=== PATIENT | male | born 1975 | race Hispanic/Latino ===

== ENCOUNTER 2017-10-07 09:23 | Observation (INO) | payer MEDICAID ==
[~2017-10-07 09:23] MED LIST: ASCO500T8 PO; BACL10TA PO; CETI10TA86 PO; CICL6.6S TP; CLOB15CR5 TP; CYAN10009 PO; FERR324T PO; FLUT15.88 NS; FURO40TA5 PO; INSU3INS3 SQ; LACT10SO9 PO; MUPI22O TP; PANT40TA25 PO; PREG50 PO; PROP20SO PO; SPIR50TA3 PO; TRAM50TA4 PO; VENL75TA63 PO
[2017-10-07] MEDS ORDERED: ONDANSETRON ODT 4 MG TAB ONE (09:52)
[2017-10-07] MEDS ORDERED: MORPHINE SULFATE 8 MG/ML VIAL ONE (09:53)
[2017-10-07 10:05] LABS: BASOPHILS % (AUTO) 0.5 % (0.0-5.0); EOSINOPHILS % (AUTO) 0.6 % (0.0-8.0); HEMATOCRIT 37.8 % (42-54); MEAN CORPUSCULAR HEMOGLOBIN 25.2 pg (27.0-33.0); MEAN CORPUSCULAR HGB CONC 33.2 g/dL (32.0-36.0); MONOCYTES % (AUTO) 9.4 % (3.0-13.0); NEUTROPHILS % (AUTO) 80.5 % (40.0-77.0); PLATELET COUNT (AUTO) 167 K/uL (130-400); RED BLOOD CELL COUNT(AUTO) 4.97 MIL/uL (4.50-6.20); RED CELL DISTRIBUTION WIDTH 22.1 % (11.0-15.5); WHITE BLOOD COUNT (AUTO) 8.1 K/uL (4.8-10.8)
[2017-10-07 10:14] LABS: CREATININE 0.7 mg/dL (0.5-1.5); POTASSIUM 4.6 mmol/L (3.5-5.1)
[2017-10-07 10:19] LABS: ALBUMIN 2.9 g/dL (3.5-5.0); BILIRUBIN,TOTAL 1.5 mg/dL (0.2-1.0); TOTAL PROTEIN, SERUM 7.4 g/dL (6.0-8.3)
[2017-10-07] MEDS ORDERED: SODIUM CHLORIDE 0.9% 1000ML 1,000 ML IV ONE (10:38)
[2017-10-07 13:35] LABS: APPEARANCE,URINE Clear (CLEAR); BILIRUBIN,URINE Small (NEGATIVE); COLOR,URINE Dark Yellow (YELLOW); GLUCOSE, URINE (UA) TRACE mg/dL (NEGATIVE); KETONES,URINE Trace mg/dL (NEGATIVE); LEUKOCYTE ESTERASE ,URINE Large (NEGATIVE); NITRATE,URINE Negative (NEGATIVE); OCCULT BLOOD,URINE Small (NEGATIVE); PROTEIN,URINE Negative (NEGATIVE)
[2017-10-07 13:54] LABS: BACTERIA,URINE Few /HPF (None Seen); RBC,URINE 0-1 /HPF (0-1); SQUAMOUS EPITHELIAL CELL,UR Rare /LPF (0-2)
[2017-10-07] MEDS ORDERED: ACETAMINOPHEN 325 MG TAB ONE (15:07)
== END 2017-10-07 21:00 | disposition left against medical advice (07) ==
LOC: EDH 09:23 → EDHIP 12:19 → 3AH 21:00
PROVIDERS: ADMIT Family Medicine; ATTEND Family Medicine
DX: K92.2 Gastrointestinal hemorrhage, unspecified (principal); J96.90 Respiratory failure, unspecified, unspecified whether with hypoxia or hypercapnia; K74.60 Unspecified cirrhosis of liver; I10 Essential (primary) hypertension; E11.9 Type 2 diabetes mellitus without complications; E78.5 Hyperlipidemia, unspecified; F10.10 Alcohol abuse, uncomplicated
CPT/HCPCS: 36415; 80053; 81001; 85025; 99285; G0378 ×9; G0480; J2270; J7030

== ENCOUNTER 2017-10-08 08:44 | Inpatient (IN) | payer MEDICAID ==
[~2017-10-08] VITALS: Ht 162.6 cm; Wt 79.8 kg
[2017-10-08] MEDS ORDERED: CEFTRIAXONE SODIUM 2 GM VIAL ONE (09:02)
[2017-10-08] MEDS ORDERED: SODIUM CHLORIDE 0.9% 500ML 500 ML IV ONE (09:03)
[2017-10-08] MEDS ORDERED: ACETAMINOPHEN 325 MG TAB ONE (09:03)
[2017-10-08 09:32] LABS: BASOPHILS % (AUTO) 0.7 % (0.0-5.0); EOSINOPHILS % (AUTO) 0.5 % (0.0-8.0); HEMATOCRIT 37.9 % (42-54); LYMPHOCYTES % (AUTO) 10.6 % (21.0-51.0); MEAN CORPUSCULAR HEMOGLOBIN 24.9 pg (27.0-33.0); MEAN CORPUSCULAR HGB CONC 32.9 g/dL (32.0-36.0); MEAN CORPUSCULAR VOLUME 75.8 fL (79-99); MONOCYTES % (AUTO) 8.3 % (3.0-13.0); NEUTROPHILS % (AUTO) 79.9 % (40.0-77.0); NUCLEATED RED BLOOD CELLS 0.1 % (0.0-0.19); PLATELET COUNT (AUTO) 150 K/uL (130-400); RED BLOOD CELL COUNT(AUTO) 4.99 MIL/uL (4.50-6.20); RED CELL DISTRIBUTION WIDTH 22.3 % (11.0-15.5); WHITE BLOOD COUNT (AUTO) 6.4 K/uL (4.8-10.8)
[2017-10-08 09:47] LABS: INR 1.14 (0.85-1.15); PARTIAL THROMBOPLASTIN TIME 31.4 SEC (26.3-35.5); PROTHROMBIN TIME 11.9 SEC (9.6-11.6)
[2017-10-08 09:50] LABS: ALBUMIN 2.7 g/dL (3.5-5.0); BILIRUBIN,DIRECT 0.4 mg/dL (0.0-0.3); BILIRUBIN,TOTAL 1.6 mg/dL (0.2-1.0); CREATININE 0.6 mg/dL (0.5-1.5); POTASSIUM 5.3 mmol/L (3.5-5.1); TOTAL PROTEIN, SERUM 7.3 g/dL (6.0-8.3)
[2017-10-08] MEDS ORDERED: SODIUM CHLORIDE 0.9% 1000ML 1,000 ML IV ONE (10:29)
[2017-10-08 10:58] LABS: APPEARANCE,URINE Clear (CLEAR); BILIRUBIN,URINE Negative (NEGATIVE); COLOR,URINE Yellow (YELLOW); GLUCOSE, URINE (UA) >=1000 mg/dL (NEGATIVE); KETONES,URINE 15 mg/dL (NEGATIVE); LEUKOCYTE ESTERASE ,URINE Trace (NEGATIVE); NITRATE,URINE Negative (NEGATIVE); OCCULT BLOOD,URINE Small (NEGATIVE); PROTEIN,URINE Negative (NEGATIVE)
[2017-10-08 11:05] LABS: AMPHET/METH SCREEN,URINE NEGATIVE (NEGATIVE); BARBITURATE SCREEN, URINE NEGATIVE (NEGATIVE); BENZODIAZEPINES SCREEN,URINE POSITIVE (NEGATIVE); CANNABINOID SCREEN,URINE NEGATIVE (NEGATIVE); COCAINE SCREEN,URINE NEGATIVE (NEGATIVE); OPIATE SCREEN,URINE NEGATIVE (NEGATIVE); PHENCYCLIDINE SCREEN,URINE NEGATIVE (NEGATIVE)
[2017-10-08 11:28] LABS: BACTERIA,URINE Rare /HPF (None Seen); SQUAMOUS EPITHELIAL CELL,UR Rare /LPF (0-2); WBC,URINE 0-1 /HPF (0-1)
[2017-10-08] MEDS ORDERED: GUAIFENESIN-DM 200/20 MG 10 ML PO PRN (14:00)
[2017-10-08] MEDS ORDERED: LACTULOSE 20 GM/30 ML UDCUP PO PRN (14:00)
[2017-10-08] MEDS ORDERED: ONDANSETRON HCL 4 MG/2 ML VIAL IV PRN (14:00)
[2017-10-08] MEDS ORDERED: ACETAMINOPHEN-CODEINE 300/30MG TAB ONE (14:19)
[2017-10-08 15:12] VITALS: BP 140/88
[2017-10-08] MEDS: SODIUM CHLORIDE 0.9% 1000ML 1,000 ML IV SCH (15:58)
[2017-10-08 16:20] VITALS: BP 143/86
[2017-10-08] MEDS: ACETAMINOPHEN-CODEINE 300/30MG TAB PO PRN (16:59)
[2017-10-08] MEDS ORDERED: FLU VACC QS2017-18 36MOS UP/PF 60 MCG/0.5 ML ML IM ONE (18:00)
[2017-10-08 19:06] VITALS: BP 137/86
[2017-10-08] MEDS: FAMOTIDINE 20MG TAB 20 MG TAB PO SCH (21:12)
[2017-10-08 23:13] VITALS: BP 146/94
[2017-10-09] MEDS: ACETAMINOPHEN-CODEINE 300/30MG TAB PO PRN ×4 (00:08→18:33)
[2017-10-09 03:20] VITALS: BP 144/85
[2017-10-09] MEDS: SODIUM CHLORIDE 0.9% 1000ML 1,000 ML IV SCH ×2 (04:03→10:16)
[2017-10-09 08:00] VITALS: BP 150/92
[2017-10-09] MEDS: LACTULOSE 20 GM/30 ML UDCUP PO SCH ×3 (09:00→21:09)
[2017-10-09] MEDS: FUROSEMIDE 20 MG TABLET PO SCH (10:15)
[2017-10-09] MEDS: FAMOTIDINE 20MG TAB 20 MG TAB PO SCH ×2 (10:15→21:09)
[2017-10-09] MEDS: SPIRONOLACTONE 25 MG TAB PO SCH (10:15)
[2017-10-09 11:00] VITALS: BP 155/91
[2017-10-09] MEDS ORDERED: CEFTRIAXONE 1GM/D5W 50ML 50 ML IV SCH (14:45)
[2017-10-09 16:00] VITALS: BP 135/84
[2017-10-09] MEDS: INSULIN LISPRO 100 UNIT/ML 3ML SQ SCH (16:30)
[2017-10-09] MEDS: WATER FOR INJECTION,STERILE 20 ML VIAL IJ SCH (17:00)
[2017-10-09] MEDS: CEFTRIAXONE SODIUM 1 GM IVP SCH (17:12)
[2017-10-09 20:00] VITALS: BP 140/99
[2017-10-09] MEDS: CHLORDIAZEPOXIDE HCL 25 MG CAP PO PRN (21:09)
[2017-10-10] VITALS: BP 134/98
[2017-10-10] MEDS: ACETAMINOPHEN-CODEINE 300/30MG TAB PO PRN ×3 (00:23→23:21)
[2017-10-10 03:44] LABS: HEMATOCRIT 32.8 % (42-54); MEAN CORPUSCULAR HEMOGLOBIN 25.1 pg (27.0-33.0); MEAN CORPUSCULAR HGB CONC 33.3 g/dL (32.0-36.0); MEAN CORPUSCULAR VOLUME 75.5 fL (79-99); NUCLEATED RED BLOOD CELLS 0.2 % (0.0-0.19); PLATELET COUNT (AUTO) 139 K/uL (130-400); RED BLOOD CELL COUNT(AUTO) 4.34 MIL/uL (4.50-6.20); RED CELL DISTRIBUTION WIDTH 22.1 % (11.0-15.5); WHITE BLOOD COUNT (AUTO) 3.9 K/uL (4.8-10.8)
[2017-10-10 04:00] VITALS: BP 140/94
[2017-10-10 04:02] LABS: ALBUMIN 2.3 g/dL (3.5-5.0); CREATININE 0.6 mg/dL (0.5-1.5); POTASSIUM 3.8 mmol/L (3.5-5.1); TOTAL PROTEIN, SERUM 6.4 g/dL (6.0-8.3)
[2017-10-10] MEDS: SODIUM CHLORIDE 0.9% 1000ML 1,000 ML IV SCH ×3 (05:53→17:33)
[2017-10-10] MEDS: INSULIN LISPRO 100 UNIT/ML 3ML SQ SCH (06:22)
[2017-10-10 08:00] VITALS: BP 129/77
[2017-10-10] MEDS: FUROSEMIDE 20 MG TABLET PO SCH (09:00)
[2017-10-10] MEDS: LACTULOSE 20 GM/30 ML UDCUP PO SCH ×2 (09:00→21:31)
[2017-10-10] MEDS: FAMOTIDINE 20MG TAB 20 MG TAB PO SCH ×2 (09:00→21:31)
[2017-10-10] MEDS: SPIRONOLACTONE 25 MG TAB PO SCH (09:00)
[2017-10-10 11:55] VITALS: BP 136/90
[2017-10-10 16:00] VITALS: BP 132/79
[2017-10-10] MEDS: WATER FOR INJECTION,STERILE 20 ML VIAL IJ SCH (17:22)
[2017-10-10] MEDS: CEFTRIAXONE SODIUM 1 GM IVP SCH (17:22)
[2017-10-10 20:00] VITALS: BP 142/88
[2017-10-10] MEDS: CHLORDIAZEPOXIDE HCL 25 MG CAP PO PRN (21:31)
[2017-10-11] VITALS: BP 150/84
[2017-10-11] MEDS: SODIUM CHLORIDE 0.9% 1000ML 1,000 ML IV SCH (03:49)
[2017-10-11 04:00] VITALS: BP 154/88
[2017-10-11] MEDS: CHLORDIAZEPOXIDE HCL 25 MG CAP PO PRN (04:48)
[2017-10-11] MEDS: ACETAMINOPHEN-CODEINE 300/30MG TAB PO PRN (04:48)
[2017-10-11 05:46] LABS: HEMATOCRIT 33.7 % (42-54); MEAN CORPUSCULAR HEMOGLOBIN 25.2 pg (27.0-33.0); MEAN CORPUSCULAR HGB CONC 32.7 g/dL (32.0-36.0); NUCLEATED RED BLOOD CELLS 0.1 % (0.0-0.19); PLATELET COUNT (AUTO) 141 K/uL (130-400); RED BLOOD CELL COUNT(AUTO) 4.38 MIL/uL (4.50-6.20); RED CELL DISTRIBUTION WIDTH 21.7 % (11.0-15.5); WHITE BLOOD COUNT (AUTO) 3.3 K/uL (4.8-10.8)
[2017-10-11 05:59] LABS: CREATININE 0.6 mg/dL (0.5-1.5); POTASSIUM 3.6 mmol/L (3.5-5.1)
[2017-10-11 08:00] VITALS: BP 128/85
[2017-10-11] MEDS: FAMOTIDINE 20MG TAB 20 MG TAB PO SCH (08:52)
[2017-10-11] MEDS: LACTULOSE 20 GM/30 ML UDCUP PO SCH (08:52)
[2017-10-11] MEDS: SPIRONOLACTONE 25 MG TAB PO SCH (08:53)
[2017-10-11] MEDS: FUROSEMIDE 20 MG TABLET PO SCH (08:53)
== END 2017-10-11 11:45 | disposition home or self-care (01) | DRG 279 ==
LOC: EDH 08:44 → EDHIP 08:45 → 3AH 15:15
PROVIDERS: ADMIT Internal Medicine; ATTEND Internal Medicine
DX: K72.90 Hepatic failure, unspecified without coma (principal); K76.6 Portal hypertension; E87.1 Hypo-osmolality and hyponatremia; D64.9 Anemia, unspecified; E11.9 Type 2 diabetes mellitus without complications; F10.10 Alcohol abuse, uncomplicated; K70.30 Alcoholic cirrhosis of liver without ascites; R41.82 Altered mental status, unspecified
CPT/HCPCS: 36415; 71045; 80048; 80053; 80076; 80305; 81001; 82140; 82550; 82948; 83605; 83690; 84484; 85025; 85027; 85610; 85730; 87040; 87186; 93005; G0378; G0480; J0696; J2270; J7030; J7040

== ENCOUNTER 2017-11-10 11:54 | Inpatient (IN) | payer MEDICAID ==
[~2017-11-10] VITALS: Ht 167.6 cm; Wt 75.2 kg
[~2017-11-10 11:54] MED LIST changes: -CICL6.6S TP; -FURO40TA5 PO; -MUPI22O TP
[2017-11-10 12:18] LABS: BASOPHILS % (AUTO) 0.8 % (0.0-5.0); EOSINOPHILS % (AUTO) 1.4 % (0.0-8.0); HEMATOCRIT 27.2 % (42-54); LYMPHOCYTES % (AUTO) 26.5 % (21.0-51.0); MEAN CORPUSCULAR HGB CONC 34.1 g/dL (32.0-36.0); MEAN CORPUSCULAR VOLUME 79.2 fL (79-99); MONOCYTES % (AUTO) 11.8 % (3.0-13.0); NEUTROPHILS % (AUTO) 59.5 % (40.0-77.0); PLATELET COUNT (AUTO) 241 K/uL (130-400); RED BLOOD CELL COUNT(AUTO) 3.43 MIL/uL (4.50-6.20); RED CELL DISTRIBUTION WIDTH 20.6 % (11.0-15.5); WHITE BLOOD COUNT (AUTO) 8.8 K/uL (4.8-10.8)
[2017-11-10 12:27] LABS: CREATININE 0.6 mg/dL (0.5-1.5); POTASSIUM 4.8 mmol/L (3.5-5.1)
[2017-11-10 12:30] LABS: INR 1.21 (0.85-1.15); PARTIAL THROMBOPLASTIN TIME 27.8 SEC (26.3-35.5); PROTHROMBIN TIME 12.7 SEC (9.6-11.6)
[2017-11-10 12:32] LABS: ALBUMIN 2.2 g/dL (3.5-5.0); BILIRUBIN,TOTAL 1.6 mg/dL (0.2-1.0); TOTAL PROTEIN, SERUM 6.5 g/dL (6.0-8.3)
[2017-11-10] MEDS ORDERED: SODIUM CHLORIDE 0.9% 200 ML IV ONE (12:39)
[2017-11-10] MEDS ORDERED: MORPHINE SULFATE 2 MG/ML 1ML SYG ONE (13:01)
[2017-11-10] MEDS ORDERED: SODIUM CHLORIDE 0.9% 1000ML 1,000 ML IV ONE ×3 (13:11→20:41)
[2017-11-10] MEDS ORDERED: LACTULOSE 20 GM/30 ML UDCUP ONE ×2 (14:55→18:09)
[2017-11-10] MEDS ORDERED: PHYTONADIONE 10 MG/1 ML AMP ONE (14:55)
[2017-11-10 19:55] LABS: BASOPHILS % (AUTO) 0.3 % (0.0-5.0); EOSINOPHILS % (AUTO) 1.4 % (0.0-8.0); HEMATOCRIT 25.8 % (42-54); LYMPHOCYTES % (AUTO) 22.6 % (21.0-51.0); MEAN CORPUSCULAR HEMOGLOBIN 26.9 pg (27.0-33.0); MEAN CORPUSCULAR HGB CONC 33.6 g/dL (32.0-36.0); MEAN CORPUSCULAR VOLUME 80.1 fL (79-99); MONOCYTES % (AUTO) 11.7 % (3.0-13.0); NUCLEATED RED BLOOD CELLS 0.1 % (0.0-0.19); PLATELET COUNT (AUTO) 173 K/uL (130-400); RED BLOOD CELL COUNT(AUTO) 3.22 MIL/uL (4.50-6.20); RED CELL DISTRIBUTION WIDTH 20.5 % (11.0-15.5); WHITE BLOOD COUNT (AUTO) 7.3 K/uL (4.8-10.8)
[2017-11-10 20:30] VITALS: BP 124/80
[2017-11-10] MEDS: SODIUM CHLORIDE 0.9% 100 ML IV SCH ×2 (20:45→21:07)
[2017-11-10] MEDS ORDERED: LACTULOSE 20 GM/30 ML UDCUP PO SCH (21:00)
[2017-11-10] MEDS: PANTOPRAZOLE 40 MG/VIAL IVP SCH (21:06)
[2017-11-10 22:00] VITALS: BP 108/69
[2017-11-10] MEDS ORDERED: TRAMADOL HCL 50 MG TABLET PO SCH (22:15)
[2017-11-10 23:00] VITALS: BP 127/75
[2017-11-11] VITALS (26 sets, daily range): BP systolic 119–161; BP diastolic 61–96
[2017-11-11 04:10] LABS: CREATININE 0.6 mg/dL (0.5-1.5); POTASSIUM 3.9 mmol/L (3.5-5.1); TOTAL PROTEIN, SERUM 5.7 g/dL (6.0-8.3)
[2017-11-11 04:20] LABS: MEAN CORPUSCULAR HGB CONC 33.6 g/dL (32.0-36.0); MEAN CORPUSCULAR VOLUME 80.3 fL (79-99); NUCLEATED RED BLOOD CELLS 0.1 % (0.0-0.19); PLATELET COUNT (AUTO) 173 K/uL (130-400); RED BLOOD CELL COUNT(AUTO) 2.87 MIL/uL (4.50-6.20); RED CELL DISTRIBUTION WIDTH 20.9 % (11.0-15.5); WHITE BLOOD COUNT (AUTO) 7.1 K/uL (4.8-10.8)
[2017-11-11] MEDS: TRAMADOL HCL 50 MG TABLET PO PRN ×3 (04:33→20:36)
[2017-11-11 05:50] LABS: BAND NEUTROPHILS % (MANUAL) 1 % (0-2); EOSINOPHILS % (MANUAL) 1 % (1-6); LYMPHOCYTES % (MANUAL) 17 % (22-44); MAN.DIFF COMMENT-IMPRESSION MANUAL DIFFERENTIAL; MONOCYTES % (MANUAL) 3 % (2-9); PLATELET MORPHOLOGY COMMENT ADEQUATE; REACTIVE LYMPHOCYTES 1 % (0-0); SEGMENTED NEUTROPHILS % 77 % (40-70)
[2017-11-11] MEDS: PANTOPRAZOLE 40 MG/VIAL IVP SCH ×2 (08:45→20:35)
[2017-11-11] MEDS: LACTULOSE 20 GM/30 ML UDCUP PO SCH ×2 (08:45→20:35)
[2017-11-11] MEDS: PHYTONADIONE 10 MG/1 ML AMP SQ SCH (08:46)
[2017-11-11] MEDS: OCTREOTIDE ACETATE 1,000 MCG in SODIUM CHLORIDE 0.9% 95 ML IV SCH ×2 (09:05→23:16)
[2017-11-11 12:59] LABS: HEMATOCRIT 19.6 % (42-54)
[2017-11-11] MEDS ORDERED: CEFTRIAXONE 1GM/D5W 50ML 50 ML IV SCH (13:30)
[2017-11-11] MEDS: CEFTRIAXONE SODIUM 1 GM IVP SCH (13:39)
[2017-11-11] MEDS ORDERED: SODIUM CHLORIDE 0.9% 250 ML IV ONE ×2 (14:31→18:55)
[2017-11-11] MEDS ORDERED: CHLORDIAZEPOXIDE HCL 25 MG CAP PO ONE (17:00)
[2017-11-11] MEDS ORDERED: GLYCOPYRROLATE 0.2 MG/ML 5 ML VIAL ONE (17:42)
[2017-11-11] MEDS ORDERED: PROPOFOL 10 MG/ML 20ML VIAL IV ONE ×2 (17:42)
[2017-11-11] MEDS ORDERED: LIDOCAINE HCL 2% 20ML ONE (17:42)
[2017-11-11] MEDS ORDERED: SODIUM CHLORIDE 0.9% 1000ML 1,000 ML IV ONE (20:08)
[2017-11-11] MEDS ORDERED: CHLORDIAZEPOXIDE HCL 25 MG CAP ONE (20:33)
[2017-11-11] MEDS: SODIUM CHLORIDE 0.9% 1,000 ML IV SCH (20:44)
[2017-11-12] VITALS (15 sets, daily range): BP systolic 127–149; BP diastolic 71–86
[2017-11-12 00:05] LABS: HEMATOCRIT 24.7 % (42-54)
[2017-11-12] MEDS: TRAMADOL HCL 50 MG TABLET PO PRN ×5 (00:29→22:45)
[2017-11-12] MEDS: LORAZEPAM 2 MG/ML 1 ML VIAL IVP PRN (01:18)
[2017-11-12] MEDS: SODIUM CHLORIDE 0.9% 1,000 ML IV SCH ×2 (03:25→10:05)
[2017-11-12] MEDS ORDERED: SODIUM CHLORIDE 0.9% 1000ML 1,000 ML IV ONE (03:29)
[2017-11-12 04:04] LABS: HEMATOCRIT 23.5 % (42-54); MEAN CORPUSCULAR HEMOGLOBIN 29.9 pg (27.0-33.0); MEAN CORPUSCULAR HGB CONC 36.4 g/dL (32.0-36.0); MEAN CORPUSCULAR VOLUME 82.2 fL (79-99); NUCLEATED RED BLOOD CELLS 0.1 % (0.0-0.19); PLATELET COUNT (AUTO) 100 K/uL (130-400); RED BLOOD CELL COUNT(AUTO) 2.86 MIL/uL (4.50-6.20); RED CELL DISTRIBUTION WIDTH 18.1 % (11.0-15.5); WHITE BLOOD COUNT (AUTO) 3.3 K/uL (4.8-10.8)
[2017-11-12 04:11] LABS: INR 1.15 (0.85-1.15)
[2017-11-12 04:16] LABS: ALBUMIN 1.8 g/dL (3.5-5.0); BILIRUBIN,DIRECT 0.5 mg/dL (0.0-0.3); BILIRUBIN,TOTAL 1.6 mg/dL (0.2-1.0); CREATININE 0.5 mg/dL (0.5-1.5); TOTAL PROTEIN, SERUM 5.2 g/dL (6.0-8.3)
[2017-11-12] MEDS ORDERED: LIDOCAINE HCL-MPF 1% 2ML VIAL ONE (04:31)
[2017-11-12] MEDS ORDERED: POTASSIUM CHLORIDE 20MEQ/100ML 100 ML IV ONE (04:32)
[2017-11-12 05:23] LABS: LYMPHOCYTES % (MANUAL) 8 % (22-44); MAN.DIFF COMMENT-IMPRESSION MANUAL DIFFERENTIAL; MONOCYTES % (MANUAL) 8 % (2-9); SEGMENTED NEUTROPHILS % 84 % (40-70)
[2017-11-12 05:24] LABS: PLATELET MORPHOLOGY COMMENT SLIGHTLY D
[2017-11-12] MEDS ORDERED: LIDOCAINE HCL-MPF 1% 2ML VIAL IVP PRN (08:00)
[2017-11-12] MEDS ORDERED: POTASSIUM CHLORIDE 20 MEQ ERTAB PO PRN (08:00)
[2017-11-12] MEDS ORDERED: POTASSIUM CHLORIDE 20MEQ/100ML 100 ML IV PRN (08:00)
[2017-11-12] MEDS ORDERED: POTASSIUM CHLORIDE 10% ELIXIR 20 MEQ/15 ML UDCUP PO PRN (08:00)
[2017-11-12] MEDS: PANTOPRAZOLE 40 MG/VIAL IVP SCH ×2 (08:47→21:00)
[2017-11-12] MEDS: PHYTONADIONE 10 MG/1 ML AMP SQ SCH (08:47)
[2017-11-12] MEDS ORDERED: M.V.I. IV [ADULT] 10 ML, FOLIC ACID 1 MG, THIAMINE HCL 100 MG in SODIUM CHLORIDE 0.9% 1... IV SCH (09:00)
[2017-11-12] MEDS: LACTULOSE 20 GM/30 ML UDCUP PO SCH ×2 (11:24→22:29)
[2017-11-12 12:31] LABS: HEMATOCRIT 23.2 % (42-54)
[2017-11-12] MEDS: CEFTRIAXONE SODIUM 1 GM IVP SCH (14:45)
[2017-11-13] VITALS: BP 136/75
[2017-11-13 04:00] VITALS: BP 140/83
[2017-11-13 05:19] LABS: BASOPHILS % (AUTO) 0.4 % (0.0-5.0); EOSINOPHILS % (AUTO) 4.5 % (0.0-8.0); HEMATOCRIT 24.1 % (42-54); LYMPHOCYTES % (AUTO) 22.9 % (21.0-51.0); MEAN CORPUSCULAR HEMOGLOBIN 29.1 pg (27.0-33.0); MEAN CORPUSCULAR HGB CONC 35.2 g/dL (32.0-36.0); MEAN CORPUSCULAR VOLUME 82.6 fL (79-99); MONOCYTES % (AUTO) 9.9 % (3.0-13.0); NEUTROPHILS % (AUTO) 62.3 % (40.0-77.0); NUCLEATED RED BLOOD CELLS 0.1 % (0.0-0.19); PLATELET COUNT (AUTO) 91 K/uL (130-400); RED BLOOD CELL COUNT(AUTO) 2.92 MIL/uL (4.50-6.20); RED CELL DISTRIBUTION WIDTH 18.3 % (11.0-15.5); WHITE BLOOD COUNT (AUTO) 3.1 K/uL (4.8-10.8)
[2017-11-13 05:24] LABS: CREATININE 0.4 mg/dL (0.5-1.5); POTASSIUM 3.3 mmol/L (3.5-5.1)
[2017-11-13] MEDS: TRAMADOL HCL 50 MG TABLET PO PRN (07:04)
[2017-11-13 08:00] VITALS: BP 148/91
[2017-11-13] MEDS: LACTULOSE 20 GM/30 ML UDCUP PO SCH (09:06)
[2017-11-13] MEDS: PANTOPRAZOLE 40 MG/VIAL IVP SCH (09:06)
[2017-11-13] MEDS: LORAZEPAM 2 MG/ML 1 ML VIAL IVP PRN (10:07)
== END 2017-11-13 10:50 | disposition home or self-care (01) | DRG 280 ==
LOC: EDH 11:54 → EDHIP 11:55 → 2BH 20:36 → 4CH 11-12 16:21
PROVIDERS: ADMIT Internal Medicine; ATTEND Internal Medicine
PROC: 0DJ08ZZ Inspection of Upper Intestinal Tract, Via Natural or Artificial Opening Endoscopic (ICD-10-PCS; principal; 2017-11-11)
PROC: 30233N1 Transfusion of Nonautologous Red Blood Cells into Peripheral Vein, Percutaneous Approach (ICD-10-PCS; 2017-11-11)
DX: K70.30 Alcoholic cirrhosis of liver without ascites (principal); I85.11 Secondary esophageal varices with bleeding; E11.22 Type 2 diabetes mellitus with diabetic chronic kidney disease; D69.6 Thrombocytopenia, unspecified; K72.90 Hepatic failure, unspecified without coma; K92.2 Gastrointestinal hemorrhage, unspecified; D62 Acute posthemorrhagic anemia; E78.5 Hyperlipidemia, unspecified; I12.9 Hypertensive chronic kidney disease with stage 1 through stage 4 chronic kidney disease, or unspecified chronic kidney disease; N18.9 Chronic kidney disease, unspecified; F10.239 Alcohol dependence with withdrawal, unspecified; F32.9 Major depressive disorder, single episode, unspecified
CPT/HCPCS: 36415; 36430; 74176; 80048; 80053; 80076; 82140; 82948; 83690; 85014; 85018; 85025; 85610; 85730; 86850; 86900; 86901; 86922; A4218; C9113; J0696; J2060; J2354; J2704; J3411; J3430; J3480; J3490; J7030; P9016

== ENCOUNTER 2017-12-21 20:12 | Observation (INO) | payer MEDICAID ==
[~2017-12-21] VITALS: Ht 162.6 cm; Wt 77.8 kg
[~2017-12-21 20:12] MED LIST changes: -SPIR50TA3 PO; +SPIR50TA5 PO
[2017-12-21 21:13] LABS: BASOPHILS % (AUTO) 0.5 % (0.0-5.0); EOSINOPHILS % (AUTO) 0.5 % (0.0-8.0); HEMATOCRIT 29.6 % (42-54); LYMPHOCYTES % (AUTO) 15.6 % (21.0-51.0); MEAN CORPUSCULAR HEMOGLOBIN 25.6 pg (27.0-33.0); MEAN CORPUSCULAR HGB CONC 34.8 g/dL (32.0-36.0); MEAN CORPUSCULAR VOLUME 73.6 fL (79-99); MONOCYTES % (AUTO) 8.2 % (3.0-13.0); NEUTROPHILS % (AUTO) 75.2 % (40.0-77.0); NUCLEATED RED BLOOD CELLS 0.1 % (0.0-0.19); PLATELET COUNT (AUTO) 184 K/uL (130-400); RED BLOOD CELL COUNT(AUTO) 4.02 MIL/uL (4.50-6.20); RED CELL DISTRIBUTION WIDTH 19.2 % (11.0-15.5); WHITE BLOOD COUNT (AUTO) 6.6 K/uL (4.8-10.8)
[2017-12-21 21:27] LABS: ALBUMIN 2.7 g/dL (3.5-5.0); CREATININE 0.4 mg/dL (0.5-1.5); POTASSIUM 3.2 mmol/L (3.5-5.1); TOTAL PROTEIN, SERUM 6.9 g/dL (6.0-8.3)
[2017-12-21] MEDS ORDERED: HYDROMORPHONE 1 MG/1 ML AMP ONE (22:40)
[2017-12-21 23:17] LABS: APPEARANCE,URINE Clear (CLEAR); BILIRUBIN,URINE Negative (NEGATIVE); COLOR,URINE Yellow (YELLOW); GLUCOSE, URINE (UA) Negative (NEGATIVE); KETONES,URINE Trace mg/dL (NEGATIVE); LEUKOCYTE ESTERASE ,URINE Negative (NEGATIVE); NITRATE,URINE Negative (NEGATIVE); OCCULT BLOOD,URINE Small (NEGATIVE); PH,URINE 6.5 (5.0-8.0); PROTEIN,URINE Negative (NEGATIVE); UROBILINOGEN,URINE 0.2 mg/dL (0.2-1.0)
[2017-12-21 23:26] LABS: BACTERIA,URINE None Seen /HPF (None Seen); MUCUS,URINE Few LPF (None Seen); RBC,URINE None Seen /HPF (0-1); SQUAMOUS EPITHELIAL CELL,UR Few /HPF (0-2); WBC,URINE None Seen /HPF (0-1)
[2017-12-21] MEDS ORDERED: SODIUM CHLORIDE 0.9% 1000ML 1,000 ML IV ONE (23:33)
[2017-12-21 23:52] LABS: AMPHET/METH SCREEN,URINE NEGATIVE (NEGATIVE); BARBITURATE SCREEN, URINE NEGATIVE (NEGATIVE); BENZODIAZEPINES SCREEN,URINE NEGATIVE (NEGATIVE); CANNABINOID SCREEN,URINE NEGATIVE (NEGATIVE); COCAINE SCREEN,URINE NEGATIVE (NEGATIVE); OPIATE SCREEN,URINE NEGATIVE (NEGATIVE); PHENCYCLIDINE SCREEN,URINE NEGATIVE (NEGATIVE)
[2017-12-22] MEDS ORDERED: POTASSIUM BICARB/CIT AC 25 MEQ TABLET.EFF ONE (00:19)
[2017-12-22 02:30] VITALS: BP 156/93
[2017-12-22] MEDS ORDERED: HYDROMORPHONE HCL 2 MG/ML VIAL IVP PRN (02:45)
[2017-12-22] MEDS ORDERED: SODIUM CHLORIDE 0.9% 1000ML 1,000 ML IV ONE (02:47)
[2017-12-22] MEDS: HYDROMORPHONE HCL 0.5 MG/0.5 ML ML ONE ×2 (03:04→03:06)
[2017-12-22] MEDS: SODIUM CHLORIDE 0.9% 1000ML 1,000 ML IV SCH ×2 (03:30→14:55)
[2017-12-22] MEDS ORDERED: HYDR2TAB5 PO (03:34)
[2017-12-22] MEDS ORDERED: SODIUM CHLORIDE TAB PO (03:34)
[2017-12-22] MEDS ORDERED: MAGN400T40 PO (03:34)
[2017-12-22] MEDS ORDERED: DIPH50CA4 PO (03:34)
[2017-12-22] MEDS ORDERED: FAMO20TA8 PO (03:34)
[2017-12-22] MEDS ORDERED: FURO80TA3 PO (03:35)
[2017-12-22] MEDS ORDERED: SODIUM CHLORIDE 0.9% 1000ML 1,000 ML IV SCH (04:00)
[2017-12-22 05:11] VITALS: BP 169/73
[2017-12-22 05:45] LABS: HEMATOCRIT 28.9 % (42-54); MEAN CORPUSCULAR HEMOGLOBIN 25.2 pg (27.0-33.0); MEAN CORPUSCULAR HGB CONC 33.8 g/dL (32.0-36.0); MEAN CORPUSCULAR VOLUME 74.3 fL (79-99); NUCLEATED RED BLOOD CELLS 0.1 % (0.0-0.19); PLATELET COUNT (AUTO) 172 K/uL (130-400); RED BLOOD CELL COUNT(AUTO) 3.89 MIL/uL (4.50-6.20); RED CELL DISTRIBUTION WIDTH 19.2 % (11.0-15.5); WHITE BLOOD COUNT (AUTO) 4.7 K/uL (4.8-10.8)
[2017-12-22 05:47] LABS: CREATININE 0.3 mg/dL (0.5-1.5); POTASSIUM 3.9 mmol/L (3.5-5.1)
[2017-12-22 07:00] VITALS: BP 136/67
[2017-12-22] MEDS: HYDROMORPHONE HCL 0.5 MG/0.5 ML ML IVP PRN ×3 (08:38→20:52)
[2017-12-22 11:08] VITALS: BP 139/74
[2017-12-22] MEDS ORDERED: HYDROMORPHONE HCL 2 MG TAB PO PRN (13:45)
[2017-12-22] MEDS ORDERED: PHARMACY COMMUNICATION MISC SCH (13:45)
[2017-12-22] MEDS: SODIUM CHLORIDE 1,000 MG TAB PO SCH ×2 (14:55→19:46)
[2017-12-22 15:27] VITALS: BP 142/81
[2017-12-22] MEDS: INSULIN HUMULIN R 100 UNIT/ML 3ML SQ SCH ×2 (16:30→20:59)
[2017-12-22 20:00] VITALS: BP 171/88
[2017-12-22] MEDS ORDERED: LACTULOSE 20 GM/30 ML UDCUP PO SCH (21:00)
[2017-12-22] MEDS ORDERED: FERROUS GLUCONATE 325 MG TABLET PO SCH (21:00)
[2017-12-22] MEDS ORDERED: DIPHENHYDRAMINE HCL 50 MG CAPSULE PO SCH (21:00)
[2017-12-23] VITALS: BP 151/89
[2017-12-23] MEDS: SODIUM CHLORIDE 0.9% 1000ML 1,000 ML IV SCH (01:11)
[2017-12-23] MEDS: HYDROMORPHONE HCL 0.5 MG/0.5 ML ML IVP PRN (03:01)
[2017-12-23 04:00] VITALS: BP 146/85
[2017-12-23 05:35] LABS: HEMATOCRIT 26.5 % (42-54); MEAN CORPUSCULAR HGB CONC 34.3 g/dL (32.0-36.0); MEAN CORPUSCULAR VOLUME 75.9 fL (79-99); NUCLEATED RED BLOOD CELLS 0.1 % (0.0-0.19); PLATELET COUNT (AUTO) 117 K/uL (130-400); RED BLOOD CELL COUNT(AUTO) 3.49 MIL/uL (4.50-6.20); RED CELL DISTRIBUTION WIDTH 19.7 % (11.0-15.5); WHITE BLOOD COUNT (AUTO) 3.1 K/uL (4.8-10.8)
[2017-12-23 05:39] LABS: CREATININE 0.4 mg/dL (0.5-1.5); POTASSIUM 3.7 mmol/L (3.5-5.1)
[2017-12-23] MEDS: INSULIN HUMULIN R 100 UNIT/ML 3ML SQ SCH (05:48)
[2017-12-23 06:16] LABS: BAND NEUTROPHILS % (MANUAL) 2 % (0-2); BASOPHILS % (MANUAL) 3 % (0-2); EOSINOPHILS % (MANUAL) 2 % (1-6); LYMPHOCYTES % (MANUAL) 21 % (22-44); MONOCYTES % (MANUAL) 10 % (2-9); SEGMENTED NEUTROPHILS % 62 % (40-70)
[2017-12-23 06:17] LABS: MAN.DIFF COMMENT-IMPRESSION MANUAL DIFFERENTIAL; PLATELET MORPHOLOGY COMMENT SLIGHTLY DECREASED
[2017-12-23 07:00] VITALS: BP 159/88
[2017-12-23] MEDS ORDERED: MAGNESIUM OXIDE 400 MG TABLET PO SCH (09:00)
[2017-12-23] MEDS ORDERED: FUROSEMIDE 80 MG TABLET PO SCH (09:00)
[2017-12-23] MEDS ORDERED: PANTOPRAZOLE SODIUM 40 MG TABLET.DR PO SCH (09:00)
[2017-12-23] MEDS ORDERED: INSULIN GLARGINE 100 UNITS/ML 10 ML VIAL SQ SCH (09:00)
[2017-12-23] MEDS ORDERED: FAMOTIDINE 20MG TAB 20 MG TAB PO SCH (09:00)
== END 2017-12-23 08:45 | disposition home or self-care (01) ==
LOC: EDH 20:12 → INTOOBSV 20:13 → EDHIP 20:13 → UNDOADMIN 12-22 00:33 → EDHIP 12-22 00:33 → 4AH 12-22 02:22
PROVIDERS: ADMIT Family Medicine; ATTEND Family Medicine
DX: E87.1 Hypo-osmolality and hyponatremia (principal); F10.20 Alcohol dependence, uncomplicated; E78.5 Hyperlipidemia, unspecified; E11.9 Type 2 diabetes mellitus without complications; G89.29 Other chronic pain; M54.9 Dorsalgia, unspecified; I10 Essential (primary) hypertension; K21.9 Gastro-esophageal reflux disease without esophagitis; K74.60 Unspecified cirrhosis of liver; K72.90 Hepatic failure, unspecified without coma
CPT/HCPCS: 36415 ×3; 80048 ×2; 80053; 80305; 81001; 82948 ×5; 85025 ×2; 85027; 96361 ×2; 96372; 96374; 96376 ×2; 99285; G0378 ×37; J1170 ×6; J1815; J7030 ×3; Q0163

== ENCOUNTER 2017-12-29 08:50 | Observation (INO) | payer MEDICAID ==
[~2017-12-29 08:50] MED LIST changes: -ASCO500T8 PO; -BACL10TA PO; -CETI10TA86 PO; -CLOB15CR5 TP; -CYAN10009 PO; +DIPH50CA4 PO; +FAMO20TA8 PO; -FLUT15.88 NS; +FURO80TA3 PO; +HYDR2TAB5 PO; +MAGN400T40 PO; -PREG50 PO; -PROP20SO PO; +SODIUM CHLORIDE TAB PO; -SPIR50TA5 PO; -TRAM50TA4 PO; -VENL75TA63 PO
[2017-12-29] MEDS ORDERED: ACETAMINOPHEN EXTRA STRENGTH 500 MG TABLET ONE (09:40)
[2017-12-29 09:41] LABS: BASOPHILS % (AUTO) 0.9 % (0.0-5.0); EOSINOPHILS % (AUTO) 3.4 % (0.0-8.0); HEMATOCRIT 34.1 % (42-54); LYMPHOCYTES % (AUTO) 25.8 % (21.0-51.0); MEAN CORPUSCULAR HEMOGLOBIN 24.7 pg (27.0-33.0); MEAN CORPUSCULAR HGB CONC 33.7 g/dL (32.0-36.0); MEAN CORPUSCULAR VOLUME 73.3 fL (79-99); MONOCYTES % (AUTO) 7.3 % (3.0-13.0); NEUTROPHILS % (AUTO) 62.6 % (40.0-77.0); PLATELET COUNT (AUTO) 142 K/uL (130-400); RED BLOOD CELL COUNT(AUTO) 4.66 MIL/uL (4.50-6.20); WHITE BLOOD COUNT (AUTO) 3.5 K/uL (4.8-10.8)
[2017-12-29 09:45] LABS: INR 1.15 (0.85-1.15); PARTIAL THROMBOPLASTIN TIME 32.8 SEC (26.3-35.5)
[2017-12-29 10:27] LABS: ALBUMIN 2.5 g/dL (3.5-5.0); BILIRUBIN,TOTAL 1.3 mg/dL (0.2-1.0); CREATININE 0.4 mg/dL (0.5-1.5); POTASSIUM 3.6 mmol/L (3.5-5.1); TOTAL PROTEIN, SERUM 6.7 g/dL (6.0-8.3)
[2017-12-29] MEDS ORDERED: ACETAMINOPHEN 325 MG TAB ONE (10:39)
[2017-12-29 10:45] LABS: AMPHET/METH SCREEN,URINE NEGATIVE (NEGATIVE); BARBITURATE SCREEN, URINE NEGATIVE (NEGATIVE); BENZODIAZEPINES SCREEN,URINE NEGATIVE (NEGATIVE); CANNABINOID SCREEN,URINE NEGATIVE (NEGATIVE); COCAINE SCREEN,URINE NEGATIVE (NEGATIVE); OPIATE SCREEN,URINE NEGATIVE (NEGATIVE); PHENCYCLIDINE SCREEN,URINE NEGATIVE (NEGATIVE)
[2017-12-29 10:46] LABS: APPEARANCE,URINE Clear (CLEAR); BILIRUBIN,URINE Negative (NEGATIVE); COLOR,URINE Yellow (YELLOW); GLUCOSE, URINE (UA) Negative (NEGATIVE); KETONES,URINE 15 mg/dL (NEGATIVE); LEUKOCYTE ESTERASE ,URINE Negative (NEGATIVE); NITRATE,URINE Negative (NEGATIVE); OCCULT BLOOD,URINE Moderate (NEGATIVE); PH,URINE 6.5 (5.0-8.0); PROTEIN,URINE Negative (NEGATIVE)
[2017-12-29 11:02] LABS: BACTERIA,URINE Rare /HPF (None Seen); SQUAMOUS EPITHELIAL CELL,UR Rare /HPF (0-2); WBC,URINE 0-1 /HPF (0-1)
[2017-12-29] MEDS ORDERED: SODIUM CHLORIDE 0.9% 1000ML 1,000 ML IV SCH (11:45)
[2017-12-29] MEDS ORDERED: SODIUM CHLORIDE 0.9% 1000ML 1,000 ML IV ONE (13:21)
[2017-12-29] MEDS ORDERED: MAGNESIUM 2GM PREMIX 50ML 50 ML IV ONE (16:48)
== END 2017-12-29 17:28 | disposition left against medical advice (07) ==
LOC: EDH 08:50 → EDHIP 11:37
PROVIDERS: ADMIT Family Medicine; ATTEND Family Medicine
DX: K70.30 Alcoholic cirrhosis of liver without ascites (principal); M54.5 Low back pain; G89.29 Other chronic pain; E11.9 Type 2 diabetes mellitus without complications; K21.9 Gastro-esophageal reflux disease without esophagitis
CPT/HCPCS: 36415; 80053; 80305; 81001; 83690; 83735; 83935; 85025; 85610; 85730; 99285; G0378 ×6; G0480; J3475; J7030; 83930

== ENCOUNTER 2018-01-08 23:25 | Emergency (ER) | payer MEDICAID ==
[2018-01-09 00:12] LABS: BASOPHILS % (AUTO) 1.1 % (0.0-5.0); HEMATOCRIT 34.3 % (42-54); LYMPHOCYTES % (AUTO) 28.4 % (21.0-51.0); MEAN CORPUSCULAR HGB CONC 33.1 g/dL (32.0-36.0); MEAN CORPUSCULAR VOLUME 78.6 fL (79-99); MONOCYTES % (AUTO) 16.7 % (3.0-13.0); NEUTROPHILS % (AUTO) 53.8 % (40.0-77.0); NUCLEATED RED BLOOD CELLS 0.2 % (0.0-0.19); PLATELET COUNT (AUTO) 187 K/uL (130-400); RED BLOOD CELL COUNT(AUTO) 4.36 MIL/uL (4.50-6.20); RED CELL DISTRIBUTION WIDTH 20.7 % (11.0-15.5); WHITE BLOOD COUNT (AUTO) 2.6 K/uL (4.8-10.8)
[2018-01-09 00:17] LABS: CREATININE 0.5 mg/dL (0.5-1.5); POTASSIUM 4.3 mmol/L (3.5-5.1)
[2018-01-09 00:20] LABS: INR 1.1 (0.85-1.15); PARTIAL THROMBOPLASTIN TIME 25.2 SEC (26.3-35.5); PROTHROMBIN TIME 11.5 SEC (9.6-11.6)
[2018-01-09 00:21] LABS: ALBUMIN 2.7 g/dL (3.5-5.0); BILIRUBIN,TOTAL 0.6 mg/dL (0.2-1.0); MAGNESIUM 1.8 mg/dL (1.80-2.40); TOTAL PROTEIN, SERUM 6.8 g/dL (6.0-8.3)
[2018-01-09] MEDS ORDERED: SODIUM CHLORIDE 0.9% 1000ML 1,000 ML IV ONE (00:40)
[2018-01-09 00:44] LABS: LYMPHOCYTES % (MANUAL) 28 % (22-44); MONOCYTES % (MANUAL) 4 % (2-9); SEGMENTED NEUTROPHILS % 68 % (40-70)
[2018-01-09 00:46] LABS: MAN.DIFF COMMENT-IMPRESSION MANUAL DIFFERENTIAL; PLATELET MORPHOLOGY COMMENT ADEQUATE
== END 2018-01-09 02:00 | disposition left against medical advice (07) ==
LOC: EDH 23:25
DX: M54.5 Low back pain (principal); K74.60 Unspecified cirrhosis of liver; E11.9 Type 2 diabetes mellitus without complications; G89.29 Other chronic pain; K21.9 Gastro-esophageal reflux disease without esophagitis; Z72.0 Tobacco use
CPT/HCPCS: 36415; 80053; 83735; 85025; 85610; 85730; 99284; G0480; J7030

== ENCOUNTER 2018-02-07 15:58 | Observation (INO) | payer MEDICAID ==
[~2018-02-07] VITALS: Ht 162.6 cm; Wt 78.9 kg
[2018-02-07 16:53] LABS: APPEARANCE,URINE Clear (CLEAR); BILIRUBIN,URINE Negative (NEGATIVE); COLOR,URINE Yellow (YELLOW); GLUCOSE, URINE (UA) 500 mg/dL (NEGATIVE); KETONES,URINE 15 mg/dL (NEGATIVE); LEUKOCYTE ESTERASE ,URINE Trace (NEGATIVE); NITRATE,URINE Negative (NEGATIVE); OCCULT BLOOD,URINE Moderate (NEGATIVE); PROTEIN,URINE POS 1+ (NEGATIVE)
[2018-02-07 17:00] LABS: AMPHET/METH SCREEN,URINE NEGATIVE (NEGATIVE); BARBITURATE SCREEN, URINE NEGATIVE (NEGATIVE); BENZODIAZEPINES SCREEN,URINE NEGATIVE (NEGATIVE); CANNABINOID SCREEN,URINE NEGATIVE (NEGATIVE); COCAINE SCREEN,URINE POSITIVE (NEGATIVE); OPIATE SCREEN,URINE NEGATIVE (NEGATIVE); PHENCYCLIDINE SCREEN,URINE NEGATIVE (NEGATIVE)
[2018-02-07 17:09] LABS: BASOPHILS % (AUTO) 0.5 % (0.0-5.0); EOSINOPHILS % (AUTO) 0.8 % (0.0-8.0); HEMATOCRIT 27.9 % (42-54); LYMPHOCYTES % (AUTO) 33.1 % (21.0-51.0); MEAN CORPUSCULAR HEMOGLOBIN 26.4 pg (27.0-33.0); MEAN CORPUSCULAR HGB CONC 35.7 g/dL (32.0-36.0); MEAN CORPUSCULAR VOLUME 74.1 fL (79-99); MONOCYTES % (AUTO) 12.1 % (3.0-13.0); NEUTROPHILS % (AUTO) 53.5 % (40.0-77.0); NUCLEATED RED BLOOD CELLS 0.1 % (0.0-0.19); PLATELET COUNT (AUTO) 81 K/uL (130-400); RED BLOOD CELL COUNT(AUTO) 3.77 MIL/uL (4.50-6.20); WHITE BLOOD COUNT (AUTO) 2.8 K/uL (4.8-10.8)
[2018-02-07 17:13] LABS: BACTERIA,URINE Rare /HPF (None Seen); WBC,URINE 0-1 /HPF (0-1)
[2018-02-07 17:24] LABS: INR 1.09 (0.85-1.15); PARTIAL THROMBOPLASTIN TIME 30.2 SEC (26.3-35.5); PROTHROMBIN TIME 11.4 SEC (9.6-11.6)
[2018-02-07 17:29] LABS: LYMPHOCYTES % (MANUAL) 32 % (22-44); MONOCYTES % (MANUAL) 16 % (2-9); PLATELET MORPHOLOGY COMMENT DECREASED; SEGMENTED NEUTROPHILS % 52 % (40-70)
[2018-02-07 17:36] LABS: ALBUMIN 2.9 g/dL (3.5-5.0); CREATININE 0.4 mg/dL (0.5-1.5); POTASSIUM 3.8 mmol/L (3.5-5.1)
[2018-02-07] MEDS ORDERED: SODIUM CHLORIDE 0.9% 1000ML 1,000 ML IV ONE ×2 (18:08→22:43)
[2018-02-07] MEDS: SODIUM CHLORIDE 0.9% 1000ML 1,000 ML IV SCH (19:45)
[2018-02-07] MEDS ORDERED: HYDROMORPHONE 1 MG/1 ML AMP IVP PRN (19:45)
[2018-02-07] MEDS ORDERED: ACETAMINOPHEN EXTRA STRENGTH 500 MG TABLET ONE (19:56)
[2018-02-07] MEDS ORDERED: ONDANSETRON HCL 4 MG/2 ML VIAL ONE (22:43)
[2018-02-07 23:05] VITALS: BP 124/66
[2018-02-08] VITALS (9 sets, daily range): BP systolic 106–144; BP diastolic 60–85
[2018-02-08] MEDS: ONDANSETRON HCL 4 MG/2 ML VIAL IVP PRN ×2 (03:16→08:54)
[2018-02-08] MEDS: SODIUM CHLORIDE 0.9% 1000ML 1,000 ML IV SCH ×2 (05:45→08:51)
[2018-02-08 06:06] LABS: HEMATOCRIT 27.9 % (42-54); MEAN CORPUSCULAR HGB CONC 35.2 g/dL (32.0-36.0); PLATELET COUNT (AUTO) 104 K/uL (130-400); RED BLOOD CELL COUNT(AUTO) 3.77 MIL/uL (4.50-6.20); WHITE BLOOD COUNT (AUTO) 5.1 K/uL (4.8-10.8)
[2018-02-08 06:16] LABS: CREATININE 0.5 mg/dL (0.5-1.5); POTASSIUM 3.7 mmol/L (3.5-5.1)
== END 2018-02-08 18:05 | disposition left against medical advice (07) ==
LOC: EDH 15:58 → EDHIP 15:59 → INTOOBSV 15:59 → 3DH 23:02
PROVIDERS: ADMIT Family Medicine; ATTEND Family Medicine
DX: S01.111A Laceration without foreign body of right eyelid and periocular area, initial encounter (principal); E87.1 Hypo-osmolality and hyponatremia; I10 Essential (primary) hypertension; D61.818 Other pancytopenia; K74.60 Unspecified cirrhosis of liver; E11.9 Type 2 diabetes mellitus without complications; K21.9 Gastro-esophageal reflux disease without esophagitis; F17.210 Nicotine dependence, cigarettes, uncomplicated; W06.XXXA Fall from bed, initial encounter; Y93.89 Activity, other specified; Y92.003 Bedroom of unspecified non-institutional (private) residence as the place of occurrence of the external cause; Y99.8 Other external cause status; Z79.4 Long term (current) use of insulin
CPT/HCPCS: 36415 ×2; 70450; 70486; 80048; 80053; 80305; 81001; 82140; 82550; 82150; 82553; 82948 ×4; 83690; 84484; 85025; 85027; 85610; 85730; 93005; 96361; 96374; 96375; 96376; 99291; G0378 ×26; G0480; J1170; J2405 ×3; J7030 ×2